=== PATIENT | male | born 1985 | race Caucasian/White ===

== ENCOUNTER 2019-04-25 20:49 | Emergency (ER) | payer OTHER ==
[~2019-04-25] VITALS: Ht 167.6 cm; Wt 97.5 kg
[2019-04-25 22:56] VITALS: BP 119/74
[2019-04-25] MEDS ORDERED: cefTRIAXone SOD 1,000 MG VL IM ONE (23:00)
== END 2019-04-25 23:42 | disposition home or self-care (01) ==
LOC: ER 20:50
DX: S81.841A Puncture wound with foreign body, right lower leg, initial encounter (principal); X58.XXXA Exposure to other specified factors, initial encounter; Y93.89 Activity, other specified; Y99.8 Other external cause status; Y92.89 Other specified places as the place of occurrence of the external cause
CPT/HCPCS: 73590; 96372; 99284; J0696